=== PATIENT | female | born 1975 | race Hispanic/Latino ===

== ENCOUNTER → 2025-10-14 | Outpatient (CLI) | payer OTHER ==
[2025-10-14 08:24] LABS: INR 0.99 (0.85-1.15)
--- NOTE | 2025-10-14 09:55 | NUR ---
U/S GD RT BREAST BX PROCEDURE PERFORMED BY DR CASTLE. PUNCTURE SITE RT BREAST AND PATIENT TOLERATED PROCEDURE WELL. SPECIMEN X 3 COLLECTED AND SENT TO LAB. END OF PROCEDURE AT 0935. BIOPSY NEEDLE REMOVED, BREAST TISSUE MARKER DEPLOYED AND DRESSING APPLIED. NO BLEEDING NOTED. TISSUE MARKER VERIFIED UNDER MAMMOGRAM. DISCHARGE INSTRUCTIONS GIVEN TO PATIENT AND VERBALIZED UNDERSTANDING. DISCHARGED VIA AMBULATORY AAO X3 WITH NO C/O PAIN.
--- NOTE | 2025-10-14 10:37 | HMCIMG ---
PERCUTANEOUS ULTRASOUND-GUIDED BIOPSY OF right BREAST MASS: CLINICAL HISTORY: This is a 50 [id number] female with right breast lesion for ultrasound-guided biopsy. The risk and benefit was explained to the patient. The risks include bleeding and infection. The patient consented to the procedure. Procedure: Under ultrasound guidance of right breast lesion at 12:00 measuring 1.25 x 0.70 cm. was localized. After sterile prep and drape, 1% Xylocaine was used for local anesthetic. Using a 18-gauge Bard gun a total of 3 core biopsy was obtained. There is some fluid which was sent for cytology. A biopsy marker was placed in the right breast lesion. The specimen was sent for histology and cell block. Patient tolerated procedure well. IMPRESSION: FINAL ASSESSMENT: Post-procedure Mammogram for Marker Placement. 1. PERCUTANEOUS ULTRASOUND-GUIDED BIOPSY OF right BREAST WITH SPECIMENS SENT FOR HISTOLOGY AND CELL BLOCK. THE PATIENT TOLERATED PROCEDURE WELL. PATHOLOGY REPORT IS PENDING. 2. PATIENT IS TO HAVE A POST BIOPSY MARKER PLACEMENT UNILATERAL BREAST MAMMOGRAM.
--- NOTE | 2025-10-14 10:40 | HMCIMG ---
DIGITAL right DIAGNOSTIC MAMMOGRAM Technique: The digital mammographic examination of right breast in craniocaudal, mediolateral oblique views along with CAD was obtained. History: This is a 50 years year-old female undergoing right breast biopsy ultrasound guidance with placement of biopsy marker. Patient has no family history of breast cancer. Patient has no complaint Reference:None available. Breast composition: Breast composition C: The breasts are heterogeneously dense, which may obscure small masses. Finding: The digital mammographic examination of right breast in craniocaudal and mediolateral oblique view along with CAD demonstrates a biopsy marker in place at 12:00 in satisfactory position.. There is no evidence of any dendritic mass, cluster microcalcification or architectural distortion. The retromammary fat appears to be normal. IMPRESSION: Biopsy marker in satisfactory place. Pathology report is pending. FINAL ASSESSMENT: Post-procedure Mammogram for Marker Placement. NOTE: IF A WORK-UP OF THIS PATIENT LEADS TO A BIOPSY, PLEASE FORWARD A COPY OF THE PATHOLOGY REPORT TO OUR OFFICE REQUIRED BY [facility] AUGUST 06, 1994. A NEGATIVE MAMMOGRAM SHOULD NOT PRECLUDE BIOPSY OF A CLINICALLY PALPABLE SUSPICIOUS MASS, 10% OF BREAST CANCERS ARE MAMMOGRAPHICALLY OCCULT. THIS MAMMOGRAPHY FACILITY IS FULLY ACCREDITED BY THE [employer]OD AND DRUG [employer]MIN[employer]RATION (FDA). THANK YOU FOR THIS REFERRAL.
== END ==
LOC: RAH 07:29
PROVIDERS: ATTEND Internal Medicine
DX: R92.8 Other abnormal and inconclusive findings on diagnostic imaging of breast (principal); N60.01 Solitary cyst of right breast; E78.5 Hyperlipidemia, unspecified; E66.9 Obesity, unspecified; Z68.32 Body mass index [BMI] 32.0-32.9, adult; Z90.710 Acquired absence of both cervix and uterus; Z98.890 Other specified postprocedural states
CPT/HCPCS: 19083; 77065; 85610; 85730; 87071; 87205; 36415; 88305; A4215 ×2